=== PATIENT | male | born 1930 | race Caucasian/White ===

== ENCOUNTER 2019-01-20 12:46 | Emergency (ER) | payer OTHER ==
[~2019-01-20] VITALS: Ht 180.3 cm; Wt 72.6 kg
--- NOTE | 2019-01-20 12:53 | NUR ---
"[facility] TO ER; SYNCOPAL EVENT WHILE AT THE [facility] TODAY (3RD SYNCOPAL EVENT IN A WEEK TODAY) PER [facility] REPORT; BS= 160; B/P =96/65 (FIELD)" pt aaox4, -sob, nad noted, vss, pending md dawson
[2019-01-20] MEDS ORDERED: IV NS 0.9% 500 ML BAG IV ONE ×2 (13:00→13:30)
[2019-01-20 13:15] LABS: BASOPHILS # (AUTO) 0.1 /CMM (0.0-0.2); BASOPHILS % (AUTO) 0.7 % (0.0-2.0); EOSINOPHILS % (AUTO) 5.3 % (0.0-6.0); HEMATOCRIT 32 % (39-51); HEMOGLOBIN 10.7 g/dL (13.5-17.5); LYMPHOCYTES # (AUTO) 2.4 /CMM (0.8-4.8); LYMPHOCYTES % (AUTO) 25.5 % (20.0-44.0); MEAN CORPUSCULAR HGB CONC 33 g/dl (31.0-36.0); MEAN CORPUSCULAR VOLUME 93 fL (80-96); MONOCYTES # (AUTO) 0.7 /CMM (0.1-1.30); MONOCYTES % (AUTO) 7.7 % (2.0-12.0); NEUTROPHILS # (AUTO) 5.7 /CMM (1.8-8.9); NEUTROPHILS % (AUTO) 60.8 % (43.0-81.0); PLATELET COUNT (AUTO) 307 /CMM (150-450); RED BLOOD CELL COUNT(AUTO) 3.47 MIL/uL (4.5-6.0); WHITE BLOOD COUNT (AUTO) 9.4 K/uL (4.3-11.0)
[2019-01-20 13:25] LABS: CALCIUM, SERUM 9.2 mg/dL (8.5-10.1); CARBON DIOXIDE 31 mmol/L (21-32); CHLORIDE 103 mmol/L (98-107); CREATININE 1.6 mg/dL (0.6-1.3); GLUCOSE 100 mg/dL (74-106); POTASSIUM 4.2 mmol/L (3.5-5.1); SODIUM SERUM 138 mmol/L (136-145); UREA NITROGEN, BLOOD 24 mg/dL (7-18)
[2019-01-20 13:31] LABS: ALANINE AMINOTRANSFERASE 17 U/L (12-78); ALBUMIN 3.2 g/dL (3.4-5.0); ALKALINE PHOSPHATASE 43 U/L (46-116); ASPARTATE AMINOTRANSFERASE 16 U/L (15-37); BILIRUBIN,DIRECT 0.1 mg/dL (0.0-0.2); BILIRUBIN,TOTAL 0.3 mg/dL (0.2-1.0); TOTAL PROTEIN, SERUM 7.1 g/dL (6.4-8.2)
[2019-01-20] MEDS ORDERED: CITA20TA16 PO (13:37)
[2019-01-20] MEDS ORDERED: CYAN-51 PO (13:37)
[2019-01-20] MEDS ORDERED: TRAZ-182 PO (13:37)
[2019-01-20] MEDS ORDERED: MIRT15TA7 PO (13:37)
[2019-01-20] MEDS ORDERED: DOCU100C36 PO (13:37)
[2019-01-20] MEDS ORDERED: OMEP20TA5 PO (13:37)
[2019-01-20] MEDS ORDERED: SENN-168 PO (13:37)
[2019-01-20] MEDS ORDERED: LEVO125T8 PO (13:37)
[2019-01-20] MEDS ORDERED: METH1POW39 PO (13:37)
[2019-01-20] MEDS ORDERED: iron (13:39)
--- NOTE | 2019-01-20 13:46 | NUR ---
[facility]
--- NOTE | 2019-01-20 14:56 | NUR ---
CALLED [facility] TO INFORM THEM THAT WE ARE READY FOR ANOTHER DR TO
[2019-01-20 14:58] LABS: APPEARANCE,URINE Clear (CLEAR); BILIRUBIN,URINE Negative (NEGATIVE); BLOOD, URINE Large Ery/uL (NEGATIVE); COLOR,URINE Yellow (YELLOW); KETONES,URINE Negative (NEGATIVE); LEUKOCYTE ESTERASE ,URINE Large (NEGATIVE); NITRITE, URINE Positive (NEGATIVE); PH,URINE 5.5 (5.0-8.0); PROTEIN,URINE 100 mg/dl (NEGATIVE); UGLUCOSE Negative (NEGATIVE); UROBILINOGEN,URINE 0.2 EU/dL (0.2)
[2019-01-20 14:59] LABS: BACTERIA,URINE 1+ /HPF (None Seen); SQUAMOUS EPITHELIAL CELL,UR Few /HPF (None Seen)
[2019-01-20] MEDS ORDERED: IV NS 0.9% 1,000 ML BAG IV ONE (15:00)
--- NOTE | 2019-01-20 18:30 | NUR ---
[facility]. ACCEPTING DR MARTINEZ TELE BED [id number] CALL [phone] TRANSPORT ETA 15-20 MIN
--- NOTE | 2019-01-20 18:38 | NUR ---
REPORT GIVEN [facility]ENN[facility] Castrejon [facility]
--- NOTE | 2019-01-20 18:50 | NUR ---
PT LEFT [facility]IA [facility], PT LEFT INS TABLE CONDITION TO [place] [facility], VSS, NAD NOTED,-SOB.
[2019-01-20 18:51] VITALS: BP 123/70
== END 2019-01-20 18:52 | disposition short-term general hospital (02) ==
LOC: ER 12:51
DX: R55 Syncope and collapse (principal); I10 Essential (primary) hypertension; K21.9 Gastro-esophageal reflux disease without esophagitis; F32.9 Major depressive disorder, single episode, unspecified; E03.9 Hypothyroidism, unspecified; Z79.899 Other long term (current) drug therapy
CPT/HCPCS: 36415; 70450; 71045; 80048; 80076; 81001; 84443; 84484; 85025; 85730; 87077; 87086; 87186; 93005; 96360; 96361; 99285; J7030; J7040 ×2; 81000-TC